=== PATIENT | female | born 1965 | race Caucasian/White ===

== ENCOUNTER 2017-10-22 17:21 | Emergency (ER) | payer OTHER ==
[~2017-10-22] VITALS: Ht 149.9 cm; Wt 64.4 kg
[~2017-10-22 17:21] MED LIST: AMITRIPTYLINE H10 MG PO; ATROVENT HFA12.9 GM INH; BACLOFEN20 MG PO; CHANTIX1 EACH PO; FLOVENT HFA12 G1 INH; GABAPENTIN800 MG PO; LEVAQUIN500 MG PO; METHOCARBAMOL750 MG PO; OXYCODONE-ACET1 EAC3 PO; PERCOCET 10-321 EACH PO; PREDNISONE10 MG PO; PROMETHAZINE HC25 M1 PO; VENTOLIN HFA18 GM INH
== END 2017-10-22 20:19 | disposition home or self-care (01) ==
LOC: ED 17:21
DX: S16.1XXA Strain of muscle, fascia and tendon at neck level, initial encounter (principal); S20.212A Contusion of left front wall of thorax, initial encounter; J43.9 Emphysema, unspecified; Z88.8 Allergy status to other drugs, medicaments and biological substances; Z91.030 Bee allergy status; Z88.5 Allergy status to narcotic agent; Z88.6 Allergy status to analgesic agent; Z79.899 Other long term (current) drug therapy; V43.62XA Car passenger injured in collision with other type car in traffic accident, initial encounter
CPT/HCPCS: 71020; 72125; 99284

== ENCOUNTER 2018-02-21 08:16 | Emergency (ER) | payer MEDICARE, OTHER ==
[~2018-02-21] VITALS: Ht 149.9 cm; Wt 64.4 kg
[2018-02-21] MEDS ORDERED: IMITREX100 MG PO (08:41)
[2018-02-21] MEDS ORDERED: OMEPRAZOLE20 MG PO (08:42)
[2018-02-21] MEDS ORDERED: MAGNESIUM200 MG PO (08:42)
[2018-02-21] MEDS ORDERED: PROMETH-CODEIN 65 ML PO (08:43)
--- OUTSIDE RECORDS SUMMARY | 2018-02-21 09:09 | XMS | Clinical Summary ---
Demographics + + + | Address | [address] | | | [place] [address] | + + + | Home Phone | | + + + | Preferred Language | Unknown | + + + | Marital Status | | + + + | Protestant Affiliation | Unknown | + + + | Race | Unknown | + + + | Ethnic Group | Unknown | + + + Author + + + | Author | [facility] | | | and [place]ana | + + + | Organization | [facility] | | | and [place] | + + + | Address | Unknown | + + + | Phone | Unavailable | + + + Support + + +---------+ + | Name | Relationship | Address | Phone | + + +---------+ + | Hayley Benitez | ECON | Unknown | | + + +---------+ + Care Team Providers + +------+ + | Care Assisted Living Administrator Name | Role | Phone | + +------+ + | Nelson Dallas | PP | | | MD | | | + +------+ + Allergies + + + + + + | Active Allergy | Reactions | Severity | Noted | Comments | | | | | Date | | + + + + + + | Bee Venom | Anaphylaxis | High | 04/22/20 | | | | | | 14 | | + + + + + + | Eggs Or Egg-Derived | | | 02/24/20 | | | Products | | | 14 | | + + + + + + | Meperidine | | | 02/24/20 | | | | | | 14 | | + + + + + + Current Medications + + +---------+---------+------+------+-------+ | Prescription | Sig. | Disp. | Refills | Star | End | Statu | | | | | | t | Date | s | | | | | | Date | | | + + +---------+---------+------+------+-------+ | methocarbamol | Take 750 mg by mouth | | | | | Activ | | (ROBAXIN) 750 mg | 2 times daily. | | | | | e | | tablet | | | | | | | + + +---------+---------+------+------+-------+ | amitriptyline | Take 10 mg by mouth | | | | | Activ | | (ELAVIL) 10 mg | nightly. | | | | | e | | tablet | | | | | | | + + +---------+---------+------+------+-------+ | baclofen | Take 20 mg by mouth | | | | | Activ | | (LIORESAL) 20 mg | 3 times daily. | | | | | e | | tablet | | | | | | | + + +---------+---------+------+------+-------+ | diclofenac | Apply topically as | | | | | Activ | | (VOLTAREN) 1% GEL | needed. | | | | | e | + + +---------+---------+------+------+-------+ | varenicline | Take 0.5 mg by mouth | | | | | Activ | | (CHANTIX) 0.5 mg | 2 times daily. | | | | | e | | tablet | | | | | | | + + +---------+---------+------+------+-------+ | | Take by mouth. 1-2 | | | | | Activ | | oxyCODONE-acetaminop | tablets 4-6 hours | | | | | e | | hen (PERCOCET) | prn | | | | | | | 10-325 mg per tablet | | | | | | | + + +---------+---------+------+------+-------+ | albuterol | Inhale 2 puffs into | | | | | Activ | | (VENTOLIN HFA) 90 | the lungs every 4 | | | | | e | | mcg/puff inhaler | hours as needed. | | | | | | + + +---------+---------+------+------+-------+ | gabapentin | 1 TAB PO QHS X 5 | 90 | 11 | 06/0 | | Activ | | (NEURONTIN) 300 mg | DAYS, THEN 1 TAB PO | capsule | | 5/20 | | e | | capsule | BID X 5 DAYS, THEN 1 | | | 14 | | | | | TAP PO TID | | | | | | + + +---------+---------+------+------+-------+ Active Problems + + + | Problem | Noted Date | + + + | Chronic cervical radiculopathy | 04/22/2014 | + + + | Neck pain | 04/22/2014 | + + + | Cervical spondylosis | 04/22/2014 | + + + | Acid reflux | | + + + | Ulcer | | + + + | Arthritis | | + + + | Asthma | | + + + | Migraine | | + + + | Tension headache | | + + + Family History + + +------+ + | Medical History | Relation | Name | Comments | + + +------+ + | COPD | Brother | | | + + +------+ + | Bipolar disorder | Child | | | + + +------+ + | Other (see comment) | Child | | epilepsy | + + +------+ + | Seizures | Daughter | | | + + +------+ + | Alcohol abuse | Father | | | + + +------+ + | Liver disease | Father | | | + + +------+ + | Alcohol abuse | Mother | | | + + +------+ + | Asthma | Mother | | | + + +------+ + | COPD | Mother | | | + + +------+ + | Diabetes | Mother | | | + + +------+ + | Heart disease | Mother | | | + + +------+ + | High blood pressure | Mother | | | + + +------+ + | Kidney disease | Mother | | | + + +------+ + | Diabetes | Other | | grandmother | + + +------+ + + +------+--------+ + | Relation | Name | Status | Comments | + +------+--------+ + | Brother | | | | + +------+--------+ + | Child | | | | + +------+--------+ + | Daughter | | | | + +------+--------+ + | Father | | | | + +------+--------+ + | Mother | | | | + +------+--------+ + | Other | | | | + +------+--------+ + Social History + + + +--------+------+ | Tobacco Use | Types | Packs/Day | Years | Date | | | | | Used | | + + + +--------+------+ | Current Every Day | Cigarettes | 1 | 30 | | | Smoker | | | | | + + + +--------+------+ + +---+---+---+ | Smokeless Tobacco: | | | | | Never Used | | | | + +---+---+---+ + + | Comments: currently using chantix | + + + + +---------+ + | Alcohol Use | Drinks/We | oz/Week | Comments | | | ek | | | + + +---------+ + | No | | | | + + +---------+ + + + + | Sex Assigned at | Date Recorded | | | | + + + | Not on file | | + + + Last Filed Vital Signs + + + + | Vital Sign | Reading | Time Taken | + + + + | Blood Pressure | 128/86 | 06/23/20141305 PDT | + + + + | Pulse | 80 | 06/23/20141305 PDT | + + + + | Temperature | - | - | + + + + | Respiratory Rate | 18 | 06/23/20141305 PDT | + + + + | Oxygen Saturation | - | - | + + + + | Inhaled Oxygen | - | - | | Concentration | | | + + + + | Weight | 63 kg (139 lb) | 06/23/20141305 PDT | + + + + | Height | 151.1 cm (4' 11.5") | 06/23/20141305 PDT | + + + + | Body Mass Index | 27.6 | 06/23/20141305 PDT | + + + + Plan of Treatment + + + + + | Health Maintenance | Due Date | Last Done | Comments | + + + + + | Vaccine: | | | | | Dtap/Tdap/Td (1 - | 6 | | | | Tdap) | | | | + + + + + | Vaccine: | | | | | Pneumococcal - | 6 | | | | (PPSV23 only) Medium | | | | | Risk (1 of 1 - | | | | | PPSV23) | | | | + + + + + | CERVICAL CANCER | | | | | SCREENING (PAP EVERY | 8 | | | | 3 YEARS ) | | | | + + + + + | Vaccine: Influenza | | | | | (#1) | 7 | | | + + + + + | BREAST CANCER | | | | | SCREENING (MAMM Q2 | 7 | | | | YEARS 50-74) | | | | + + + + + | COLON CANCER | | | | | SCREENING | 7 | | | | (COLONOSCOPY EVERY | | | | | 10 YEARS 50-75) | | | | + + + + + Results Not on filefrom Last 3 Months Insurance + +--------+ +--------+ +---------+ | Payer | Benefi | Subscriber | Type | Phone | Address | | | t Plan | ID | | | | | | / | | | | | | | Group | | | | | + +--------+ +--------+ +---------+ | [employer] | [employer] | xxxxxxxx | Medica | [phone] | | | MEDICAID HMO | HEALTH | | id | [id number] | | | | [place] | | | | | | | [place]MO [place] | | | | | + +--------+ +--------+ +---------+ + +--------+ +--------+ + + | Guarantor Name | Accoun | Relation to | Date | Phone | Billing Address | | | t Type | Patient | of | | | | | | | | | | + +--------+ +--------+ + + | LILLY BENITEZ | Person | Self [birth year] | Home: | [address] | | [place] | [place] | | 1965 | [phone] | [place] [address] | | | [place] | | | [phone] | | + +--------+ +--------+ + +
--- OUTSIDE RECORDS SUMMARY | 2018-02-21 09:09 | XMS | Clinical Summary ---
Demographics + + + | Address | [address] | | | [place] [address] | + + + | Home Phone | | + + + | Preferred Language | Unknown | + + + | Marital Status | Single | + + + | Muslim Affiliation | Unknown | + + + | Race | White | + + + | Ethnic Group | Not or | + + + Author + + + | Author | NON REVENUE LOCATIONS | + + + | Organization | NON REVENUE LOCATIONS | + + + | Address | Unknown | + + + | Phone | Unavailable | + + + Support + + +---------+ + | Name | Relationship | Address | Phone | + + +---------+ + | Hayley Layne | ECON | Unknown | | + + +---------+ + Care Team Providers + +------+ + | Care Adjunct Communications Faculty Member Name | Role | Phone | + +------+ + PP | Unavailable | + +------+ + Source Comments TROY is fully live on both [facility] and [facility] InPatient.[facility] Allergies Not on File Current Medications Not on file Active Problems Not on file Social History + +-------+ +--------+------+ | Tobacco Use | Types | Packs/Day | Years | Date | | | | | Used | | + +-------+ +--------+------+ | Never Assessed | | | | | + +-------+ +--------+------+ + + + | Sex Assigned at | Date Recorded | | | | + + + | Not on file | | + + + Plan of Treatment + + + + + | Health Maintenance | Due Date | Last Done | Comments | + + + + + | INFLUENZA VACCINE | | | | | (FLU SHOT) | 8 | | | + + + + + Results Not on filefrom Last 3 Months"
--- OUTSIDE RECORDS SUMMARY | 2018-02-21 09:09 | XMS | Clinical Summary ---
Demographics + + + | Address | [address] | | | [place] [address] | + + + | Home Phone | | + + + | Preferred Language | Unknown | + + + | Marital Status | | + + + | Faith Affiliation | Unknown | + + + | Race | Unknown | + + + | Ethnic Group | Unknown | + + + Author + + + | Author | [facility] | | | and [place]ana | + + + | Organization | [facility] | | | and [place]ana | [...] Team Providers + +------+ + | Care Glass Edger Name | Role | Phone | + [...] | [employer] | xxxxxxxx | Medica | [phone] | | | MEDICAID HMO | HEALTH [...] [place] | [place] | | 1965 | [phone] | [place] [address] | | | [place] | | | [phone] | | + +--------+ +--------+ + +
--- OUTSIDE RECORDS SUMMARY | 2018-02-21 09:09 | XMS | Clinical Summary ---
Demographics + + + | Address | [address] | | | [place] [address] | + + + | Home Phone | | + + + | Preferred Language | Unknown | + + + | Marital Status | Single | + + + | Islam Affiliation | Unknown | + + + [...] Team Providers + +------+ + | Care Metal Rivet Machine Operator Name | Role | Phone | + +------+ + PP | Unavailable | + +------+ + Source Comments TROY is fully live on both [facility] and [facility] InPatient.[facility] Allergies Not on File Current Medications Not [...]
[2018-02-21] MEDS ORDERED: KEFLEX500 MG PO (12:19)
[2018-02-21] MEDS ORDERED: PERCOCET 10-321 EACH PO (12:19)
[2018-02-25] MEDS ORDERED: ZOFRAN ODT4 MG PO (09:17)
[2018-04-21] MEDS ORDERED: FENTANYL1 EAC3 TD (13:02)
== END 2018-02-21 12:28 | disposition home or self-care (01) ==
LOC: ED 08:16
DX: K62.89 Other specified diseases of anus and rectum (principal); L03.317 Cellulitis of buttock; J44.9 Chronic obstructive pulmonary disease, unspecified; Z87.891 Personal history of nicotine dependence; Z88.5 Allergy status to narcotic agent; Z91.030 Bee allergy status; Z88.6 Allergy status to analgesic agent; Z91.012 Allergy to eggs; Z79.899 Other long term (current) drug therapy
CPT/HCPCS: 74177; 80053; 81001; 83690; 85025; 99284; J7030; Q9967

== ENCOUNTER 2018-02-26 10:00 | Observation (INO) | payer MEDICARE, OTHER ==
[~2018-02-26] VITALS: Ht 149.9 cm; Wt 64.4 kg
[~2018-02-26 10:00] MED LIST changes: +IMITREX100 MG PO; +KEFLEX500 MG PO; +MAGNESIUM200 MG PO; +OMEPRAZOLE20 MG PO; +PROMETH-CODEIN 65 ML PO; +ZOFRAN ODT4 MG PO
--- NOTE | 2018-02-27 08:05 | OR ---
[facility] [address] [place], [place] [address] Signed DATE OF OPERATION: 02/26/2018 SURGEON: Ebenezer Crandall MD PREOPERATIVE DIAGNOSIS: Posterior rectal mass. POSTOPERATIVE DIAGNOSES: 1. A 3 cm posterior midline anal mass. 2. 5 mm polyps at 70, 30, 25, 18 and 10 cm. 3. Left perirectal abscess/cellulitis. PROCEDURE: Colonoscopy with hot biopsy. ESTIMATED BLOOD LOSS: None. INDICATIONS: Lilly is a 52-year-old female. She said just over the last few weeks, has noticed tremendous amount of pain and a masslike affect around her anus with induration on the left side of her buttocks. She had been to the emergency room. Under exam, she was found to have a rectal tumor posteriorly. A CT scan confirmed the tumor with some perirectal nodules most consistent with lymph nodes. No obvious abscess. The liver and lungs were unremarkable. She has had a previous cholecystectomy and a hysterectomy. She was given some antibiotics and asked to see me expeditiously in my office as a local general surgeon. In the office, she came with her daughter and of course she is going to set off to the side just a bit. We had a long discussion regarding her findings. We talked about examining her in the office and she wanted to wait 2 days while we were here for her colonoscopy. I gave her a pamphlet on colonoscopy as well as colorectal polyps and cancer. We looked at that together in detail. She understands the nature of the colonoscopy along with its risks including, but not limited to gas bloating, crampy abdominal pain, bleeding, perforation, requiring surgery, and missed diagnosis. She also understands the need for IV conscious sedation. Given her oxygen-dependent COPD, we asked that an anesthesia provider help us with increased monitoring sedation. PROCEDURE NOTE: Lilly was taken into our endoscopy suite and placed in the left lateral decubitus position. She was given IV sedation with propofol per nurse doll surgeon. We did notice her heart rate was tachycardic around 120-130. On examination, we immediately realized Electronically Signed By: EBENEZER CRANDALL MD 02/27/18 0805 PATIENT NAME: LILLY BENITEZ OPERATIVE REPORT DATE OF : 69 REPORT #: [id number] PHYSICIAN: EBENEZER CRANDALL MD PCP: MARIEL DALLAS MD REPORT IS CONFIDENTIAL AND NOT TO BE RELEASED WITHOUT AUTHORIZATION [facility] [address] [place], [place] [address] Signed her left buttock is quite erythematous, warm, and indurated. In the posterior midline anal canal, we could easily feel a 3 cm tumor. It is quite indurated and firm. Whether or not attached to the sphincters is hard to know. I inserted an index finger into the vagina and I can feel the posterior wall smooth, but I could feel what probably is the perirectal abscess on the side of the left gluteus. I did not specifically feel any tumor. The adult colonoscope was then introduced into the anal canal and advanced under direct visualization all the way up into the cecum. Her prep was average. There was a couple areas of particulate stool matter, I could not quite suction out completely, but most of it was fine. We could easily see the appendiceal orifice and the ileocecal valve. The scope was then slowly withdrawn. We did remove multiple polyps as described above with the help of hot biopsy forceps. We saw no synchronous cancers. We tried several times and we were not able to retroflex the scope in her rectum. The scope was withdrawn slowly. We could easily see the tumor, so we took several pictures of that as well. We also took several biopsies around the periphery of the tumor. After this, the gas was suctioned out and the colonoscope removed. Lilly tolerated the procedure quite well. Ebenezer Crandall MD ALB/MODL /[id number] cc: Mariel Dallas MD Copies: MARIEL DALLAS MD ~ Electronically Signed By: EBENEZER CRANDALL MD 02/27/18 0805 PATIENT NAME: LILLY BENITEZ OPERATIVE REPORT DATE OF : 69 REPORT #: [id number] PHYSICIAN: EBENEZER CRANDALL MD PCP: MARIEL DALLAS MD REPORT IS CONFIDENTIAL AND NOT TO BE RELEASED WITHOUT AUTHORIZATION
[2018-04-21] MEDS ORDERED: FENTANYL1 EAC3 TD (13:02)
== END 2018-02-26 16:15 | disposition short-term general hospital (02) ==
LOC: OPS 10:00 → DS 10:00 → OPS 11:45 → DS 11:45 → OPS 12:39 → CCU 12:40 → DS 13:35 → CCU 16:15 → OPS 16:35
PROVIDERS: ADMIT Colon & Rectal Surgery
PROC: 0DBE8ZX Excision of Large Intestine, Via Natural or Artificial Opening Endoscopic, Diagnostic (ICD-10-PCS; 2018-02-26)
PROC: 0DBP8ZX Excision of Rectum, Via Natural or Artificial Opening Endoscopic, Diagnostic (ICD-10-PCS; principal; 2018-02-26 11:45)
DX: C20 Malignant neoplasm of rectum (principal); K61.1 Rectal abscess; K63.5 Polyp of colon; J44.9 Chronic obstructive pulmonary disease, unspecified; K59.00 Constipation, unspecified; G89.29 Other chronic pain; G45.3 Amaurosis fugax; M54.40 Lumbago with sciatica, unspecified side; M19.90 Unspecified osteoarthritis, unspecified site; Z87.891 Personal history of nicotine dependence; Z87.11 Personal history of peptic ulcer disease; Z99.81 Dependence on supplemental oxygen; Z85.41 Personal history of malignant neoplasm of cervix uteri; Z79.891 Long term (current) use of opiate analgesic; Z79.51 Long term (current) use of inhaled steroids; Z79.899 Other long term (current) drug therapy; Z88.5 Allergy status to narcotic agent; Z88.8 Allergy status to other drugs, medicaments and biological substances
CPT/HCPCS: 36415; 80053; 82378; 83605; 83735; 84100; 84134; 85025; 88305; 96374; G0378; J0692; J1644; J2250; J2270; J2370; J2704; J3010; J7120

== ENCOUNTER 2018-04-23 08:45 | Day surgery (SDC) | payer MEDICARE, OTHER ==
[~2018-04-23] VITALS: Ht 149.9 cm; Wt 60.8 kg
[~2018-04-23 08:45] MED LIST changes: +FENTANYL1 EAC3 TD
--- NOTE | 2018-04-23 10:50 | NUR ---
04/23/18 1050 Loretta Mccord 1027 PT ARRIVED TO PACU DROWSY, ON 2L NC. RESP EVEN AND UNLABORED. 1030 O2 DECREASED TO 88%, PT ENCOURAED TO DEEP BREATH AND COUGH. O2 CONTINUES TO REMAIN 88%. O2 INCREASED TO 4L VIA NC. O2 INCREASED TO 93%. 1038 X-RAY AT BEDSIDE. 1045 PT DENIES PAIN AND NAUSEA, WARM BLACKET APPLIED PER REQUEST. PT RESTING WITH NO PROBLEMS AT THIS TIME. VSS.
--- NOTE | 2018-04-23 16:19 | OR ---
[facility] [address] [place], [place] [address] Signed DATE OF OPERATION: 04/23/2018 SURGEON: Ebenezer Crandall MD PREOPERATIVE DIAGNOSIS: Squamous cell carcinoma of the anal canal. POSTOPERATIVE DIAGNOSIS: Squamous cell carcinoma of the anal canal. PROCEDURES PERFORMED: 1. Placement of right internal jugular single-lumen Gmbc-E-Yoonkxtv. 2. Physician-directed fluoroscopy. 3. Physician-directed ultrasound. ESTIMATED BLOOD LOSS: None. INDICATIONS: Lilly is a 52-year-old female who came to us a few weeks ago. She was diagnosed with a squamous cell carcinoma in the posterior midline of her anal canal. She is preparing now for her chemotherapy and radiation therapy. Consequently, she is in need of a Nnvz-V-Mcedtomw. I had met with Lilly and her daughter multiple times now in the office. I explained to them the nature of a Cevp-L-Putghypg involving the subcutaneous port for her chemotherapy. They understand this has to be placed under sterile conditions in the operating room. There is risk of surgery including, but not limited to bleeding, infection, scarring, change in contour of the skin, pneumothorax requiring chest tube placement or catheter embolization requiring retrieval. They had expressed understanding and wished to proceed. PROCEDURE NOTE: I met with Lilly and her daughter in the preop area. After this, Lilly was taken into the operating room and placed in the Trendelenburg position under monitored anesthesia care per our nurse paint crew supervisor. She was given preoperative antibiotics along with subcutaneous heparin. SCDs were utilized. She was then prepped and draped in the usual sterile fashion. She has had a previous cervical fusion through the right anterior approach. We went slightly above the eschar. We could easily localized her internal jugular vein. Local anesthetic was injected in her neck and down across the clavicle and on to the chest wall. We passed our needle under direct visualization of the ultrasound into the internal jugular vein with good return of dark nonpulsatile Electronically Signed By: EBENEZER CRANDALL MD 04/23/18 1619 PATIENT NAME: LILLY BENITEZ OPERATIVE REPORT DATE OF : 69 REPORT #: [id number] PHYSICIAN: EBENEZER CRANDALL MD PCP: MARIEL MORROW MD REPORT IS CONFIDENTIAL AND NOT TO BE RELEASED WITHOUT AUTHORIZATION [facility] [address] [place], [place] [address] Signed blood. The wire was able to feed without any resistance whatsoever. We checked the position of the wire with the help of the fluoroscopy unit. After this, the track was dilated without resistance and the dilator traveled in the correct direction. We checked the position of the dilator with the help of fluoroscopy unit. After this, we were able to pass the catheter down the dilator and the dilator sheath was then removed. Again, the position of the catheter was checked with our fluoroscopy unit. We then made a short oblique incision on the right chest wall and developed a subcutaneous pocket on the chest wall with the help of the hemostats. We then passed our tunneler up over the clavicle in the subcutaneous space up to the neck and we were able to bring our catheter down underneath the skin onto the chest wall. We checked the full length of the catheter to make sure there were no kinks. After this, it was cut to length and the hub was placed on the end and the collar was brought over the end of the hub to help secure the catheter in place. The hub was then placed into the subcutaneous pocket on the right chest wall. It was held in place with three interrupted Prolene sutures. We then withdrew and flushed the catheter with injectable saline. We rechecked the full length of the catheter with fluoroscopy unit and found it to be a little high in the superior vena cava, but otherwise in good position. There were no kinks throughout the length of the catheter. We then withdrew the blood in it and then filled the hub in the catheter with concentrated heparin. The wound was irrigated and suctioned out until clear. We closed the dermis of the chest wall with interrupted 3-0 subcuticular Monocryl sutures. The dermis of the small incision on her neck was closed with 5-0 Monocryl suture. The skin edges were reapproximated on both incisions with a running 6-0 fast absorbing plain gut suture. Dry gauze and tape were then applied. Lilly was then taken into recovery room in stable condition. Our portable chest x-ray is pending. Ebenezer Crandall MD ALB/MODL /[id number] cc: MD Elizabeth Mejia MD Jonathan Hitzman, MD Electronically Signed By: EBENEZER CRANDALL MD 04/23/18 1619 PATIENT NAME: LILLY BENITEZ OPERATIVE REPORT DATE OF : 69 REPORT #: [id number] PHYSICIAN: EBENEZER CRANDALL MD PCP: MARIEL MORROW MD REPORT IS CONFIDENTIAL AND NOT TO BE RELEASED WITHOUT AUTHORIZATION [facility] [address] [place], [place] [address] Signed MD Gopal Chacon MD Copies: TATYANA ANGULO MD,MARIEL SHUKLA MD, MD, ANDREW L MD QUACKENBUSH,GOPAL Santana MD ~ Electronically Signed By: EBENEZER CRANDALL MD 04/23/18 1619 PATIENT NAME: LILLY BENITEZ OPERATIVE REPORT DATE OF : 69 REPORT #: [id number] PHYSICIAN: EBENEZER CRANDALL MD PCP: MARIEL MORROW MD REPORT IS CONFIDENTIAL AND NOT TO BE RELEASED WITHOUT AUTHORIZATION
== END 2018-04-23 11:19 | disposition home or self-care (01) ==
LOC: DS 08:45
PROVIDERS: Colon & Rectal Surgery
PROC: 05HM33Z Insertion of Infusion Device into Right Internal Jugular Vein, Percutaneous Approach (ICD-10-PCS; 2018-04-23)
PROC: B513YZA Fluoroscopy of Right Jugular Veins using Other Contrast, Guidance (ICD-10-PCS; 2018-04-23)
PROC: 0JH60WZ Insertion of Totally Implantable Vascular Access Device into Chest Subcutaneous Tissue and Fascia, Open Approach (ICD-10-PCS; principal; 2018-04-23 09:15)
DX: C21.1 Malignant neoplasm of anal canal (principal); J44.9 Chronic obstructive pulmonary disease, unspecified; M19.90 Unspecified osteoarthritis, unspecified site; Z88.6 Allergy status to analgesic agent; Z88.5 Allergy status to narcotic agent; Z79.899 Other long term (current) drug therapy
CPT/HCPCS: 00532; 71045; 77001; C1788; J0690; J1644; J2250; J2704; J3010; J7120